=== PATIENT | female | born 1950 | race Caucasian/White ===

== ENCOUNTER → 2020-07-03 | Outpatient (CLI) | payer MEDICARE ==
[2020-07-03 09:14] LABS: BUN/CREATININE RATIO 23; CALCIUM 10.2 MG/DL (8.5-10.1); CARBON DIOXIDE 30 MMOL/L (21-32); CHLORIDE 105 MMOL/L (98-107); CREATININE SERUM 0.83 MG/DL (0.60-1.30); GFR ESTIMATED > 60; GLUCOSE 90 MG/DL (70-105); POTASSIUM 4.4 MMOL/L (3.6-5.0); SODIUM 141 MMOL/L (135-145)
[2020-07-03 09:15] LABS: ALANINE AMINOTRANSFERASE 14 U/L (0-55); ALBUMIN 4.3 GM/DL (3.2-4.5); ALKALINE PHOSPHATASE 47 U/L (40-136); BILIRUBIN,TOTAL 0.5 MG/DL (0.1-1.0)
[2020-07-03 15:27] LABS: CHOLESTEROL 188 MG/DL (< 200); HDL CHOLESTEROL 83 MG/DL (40-60); TRIGLYCERIDES 68 MG/DL (<150); VLDL CHOLESTEROL 14 MG/DL (5-40)
== END ==
LOC: LAB FS 08:12
PROVIDERS: ATTEND Family Medicine
DX: I10 Essential (primary) hypertension (principal)
CPT/HCPCS: 36415; 80053; 80061

== ENCOUNTER → 2020-12-25 | Outpatient (CLI) | payer MEDICARE ==
--- NOTE | 2020-12-25 17:00 | Diagnostic Imaging Report ---
INDICATION: Right knee pain. AP, oblique and lateral views of the right knee are obtained. No previous studies available at this time for comparison. FINDINGS: There is moderate narrowing of the medial knee joint compartment with prominent medial compartment spurring. Patellofemoral marginal spurring is also noted without evidence of an acute fracture or subluxation. There is no significant joint effusion. Tortuous vessels seen in the medial aspect of the thigh and calf are compatible with varicose veins. IMPRESSION: Osteoarthritis of the knee without acute osseous abnormality detected. Dictated by: Dictated on workstation # [id number]
== END ==
LOC: RAD FS 09:47
PROVIDERS: ATTEND Family Medicine
DX: M17.11 Unilateral primary osteoarthritis, right knee (principal)
CPT/HCPCS: 73562

== ENCOUNTER → 2021-12-30 | Outpatient (CLI) | payer MEDICARE ==
[2021-12-30 10:42] LABS: BILIRUBIN,TOTAL 0.9 MG/DL (0.1-1.0); CALCIUM 9.4 MG/DL (8.5-10.1); CREATININE SERUM 0.74 MG/DL (0.60-1.30); POTASSIUM 4.4 MMOL/L (3.6-5.0)
[2021-12-30 10:43] LABS: ALBUMIN 4.3 GM/DL (3.2-4.5); TOTAL PROTEIN 6.5 GM/DL (6.4-8.2)
[2021-12-31 15:52] LABS: FREE T4 (FREE THYROXINE) 0.99 NG/DL (0.70-1.48)
== END ==
LOC: LAB FS 08:51
PROVIDERS: ATTEND Family Medicine
DX: Z00.00 Encounter for general adult medical examination without abnormal findings (principal); I10 Essential (primary) hypertension
CPT/HCPCS: 36415; 80053; 80061; 84439; 84443

== ENCOUNTER 2022-10-31 14:30 | Emergency (ER) | payer MEDICARE ==
[~2022-10-31] VITALS: Ht 152.4 cm; Wt 75.5 kg
[2022-10-31 14:37] VITALS: BP 132/85
[2022-10-31] MEDS ORDERED: NS IV 500 ML 500 ML IV SCH (15:15)
[2022-10-31] MEDS ORDERED: ONDANSETRON 4 MG/2 ML (SDV) Z0FRAN IVP ONE (15:15)
[2022-10-31 15:20] LABS: BASOPHILS % (AUTO) 0 % (0-10); EOSINOPHILS # (AUTO) 0.1 10^3/uL (0.0-0.3); EOSINOPHILS % (AUTO) 1 % (0-10); HEMATOCRIT 38 % (35-52); HEMOGLOBIN 12.2 g/dL (11.5-16.0); LYMPHOCYTES # (AUTO) 0.9 10^3/uL (1.0-4.0); LYMPHOCYTES % (AUTO) 16 % (12-44); MEAN CORPUSCULAR HEMOGLOBIN 29 pg (25-34); MEAN CORPUSCULAR HGB CONC 32 g/dL (32-36); MEAN CORPUSCULAR VOLUME 90 fL (80-99); MONOCYTES # (AUTO) 0.6 10^3/uL (0.0-1.0); MONOCYTES % (AUTO) 11 % (0-12); NEUTROPHILS # (AUTO) 3.9 10^3/uL (1.8-7.8); NEUTROPHILS % (AUTO) 72 % (42-75); PLATELET COUNT 225 10^3/uL (130-400); WHITE BLOOD COUNT 5.5 10^3/uL (4.3-11.0)
[2022-10-31 15:37] LABS: CLARITY,URINE SL CLOUDY; COLOR,URINE YELLOW; GLUCOSE, URINE (UA) NEGATIVE (NEGATIVE); KETONES,URINE 2+ (NEGATIVE); LEUKOCYTE ESTERASE ,URINE NEGATIVE (NEGATIVE); NITRITE,URINE NEGATIVE (NEGATIVE); PROTEIN,URINE NEGATIVE (NEGATIVE)
[2022-10-31] MEDS ORDERED: HOLD METFORMIN - RECEIVED CONTRAST 20 ML VIAL IV SCH (15:45)
[2022-10-31] MEDS ORDERED: NS 100 ML (IVPB) BAG IV ONE (15:45)
[2022-10-31] MEDS ORDERED: IOHEXOL 350 MG/ML 100 ML (OMNIPAQUE 350) VIAL IV ONE (15:45)
[2022-10-31 15:50] LABS: INR 0.9 (0.8-1.4); PROTHROMBIN TIME PATIENT 12.2 SEC (12.2-14.7)
[2022-10-31 15:52] LABS: ALBUMIN 3.6 GM/DL (3.2-4.5); BILIRUBIN,TOTAL 0.3 MG/DL (0.1-1.0); CALCIUM 9.3 MG/DL (8.5-10.1); CREATININE SERUM 0.77 MG/DL (0.60-1.30)
[2022-10-31 16:17] LABS: BILIRUBIN,URINE 2+ (NEGATIVE)
[2022-10-31 16:18] LABS: BACTERIA,URINE TRACE /HPF; WBC,URINE RARE /HPF
--- NOTE | 2022-10-31 16:24 | Diagnostic Imaging Report ---
PROCEDURE: CT abdomen and pelvis with contrast. TECHNIQUE: Multiple contiguous axial images were obtained through the abdomen and pelvis after administration of intravenous contrast. Auto Exposure Controls were utilized during the CT exam to meet ALARA standards for radiation dose reduction. All CT scans use one or more of the following dose optimizing techniques: Automated exposure control, MA and/or KvP adjustment based on patient size and exam type or iterative reconstruction. INDICATION: Abdominal pain and bloating. FINDINGS: Patient is post right mastectomy. There are multiple subcentimeter nodules seen within the basilar aspects of the lungs. Largest nodule on the left is calcified. Calcified granuloma is seen in the left hilum. There are multiple low-density nodules within the liver parenchyma with the largest in the left lobe reaching approximately 2.[address] appearance is most suggestive of hepatic cysts. There is no evidence of gallbladder lesion or biliary ductal dilatation. There is, however, moderate abdominal ascites with hxkfkyey-fd-upzzs amount of pelvic ascites. No pancreatic, adrenal gland, or splenic lesion is identified, although calcified granulomas are present within the spleen. There is high-density material within the colon. This is likely related to ingested substance. There is increased density in the mesentery and omentum, which could be due to edema or inflammation. Small cortical cysts are present within the kidneys without definite hydronephrosis. There is a small umbilical hernia containing fat. Unopacified bladder is unremarkable. There appears to be focal enlargement with mural thickening in the proximal left femoral vein in the inguinal region. IMPRESSION: 1. Subcentimeter nodules in the lung bases are likely related to previous granulomatous exposure. Additional calcified lymph nodes are seen in the left hilum, and calcified granulomas are present in the spleen. Although appearance is less typical, in patient with breast cancer, metastatic disease is not fully excluded. 2. Below the diaphragm, there is a moderate amount of ascites with questionable abnormal increased density in the omentum. Again this could be inflammatory in nature. Metastatic disease to the omentum is not fully excluded, and consideration should be given to diagnostic paracentesis for further assessment. 3. Possible left femoral varix in the inguinal region has a somewhat atypical appearance and could be further assessed with ultrasonography. Dictated by: Dictated on workstation # [id number]
--- NOTE | 2022-10-31 17:12 | ED Abdominal Pain ---
General Chief Complaint: Abdominal/GI Problems Stated Complaint: ABD PAIN Nursing Triage Note: Patient c/o Abd. bloating, gas, and diarrhea x 2 wks. Patient states she has had 2 diarrhea stools in last 24 hrs and states her stool today was "black." Patient denies any Hx. of GI bleed, colitis, or diverticulitis. Patient denies any fevers or urinary symptoms. Patient states her pain is mostly upper Abd. Source of Information: Patient, Family (Daughter), RN Notes Reviewed Exam Limitations: No Limitations History of Present Illness Date Seen by Provider: Oct 31, 2022 Time Seen by Provider: 14:59 Initial Comments 71-year-old female patient complaining of abdominal bloating for 2 weeks and a bdominal pain for 1 day. Patient states she has had bloating in her abdomen and 2-3 episodes of nonbloody diarrhea per day for the last 2 weeks associated with nausea without vomiting. Patient states that she was seen by primary care physician 1 week ago and treated for GERD without improvement of her condition. Patient stated she had pain in epigastric area since this and called her primary care physician and she ordered blood and stool test but because of generalized weakness and shortness of increasing pain she decided to come to ER instead of going only to the lab. Patient stated she had anorexia and had black stool today. Patient states she had unintentional weight loss about 20 pounds in the last 1 year. Patient had lab colonoscopy more than 10 years ago and had stool test for colon cancer 4-5 years ago. Patient denies fever and chills, chest pain, vomiting, urinary symptoms. Patient complaining of shortness of breath because of increasing abdominal size. Patient had history of right mastectomy 27 years ago because of cancer. Patient already has a scheduled appointment with GI specialist on November 03. Allergies and Home Medications Allergies Coded Allergies: No Known Drug Allergies (Unverified , 10/31/22) Patient Home Medication List Home Medication List Reviewed: Yes Ondansetron (Ondansetron Odt) 4 Mg Tab.rapdis, 4 MG PO TID PRN for NAUSEA-1ST LINE Prescribed by: Ana day on 10/31/22 2570 Review of Systems Review of Systems Constitutional: see HPI EENTM: See HPI Respiratory: See HPI Cardiovascular: See HPI Gastrointestinal: See HPI Genitourinary: See HPI Musculoskeletal: see HPI Skin: see HPI Psychiatric/Neurological: See HPI Endocrine: See HPI Hematologic/Lymphatic: See HPI All Other Systems Reviewed Negative Unless Noted: Yes Past Bpirioc-Pxrvyk-Nbywep Hx Patient Social History Tobacco Use?: No Use of E-Cig and/or Vaping dev: No Substance use?: No Alcohol Use?: Yes Alcohol Frequency: Rarely Immunizations Up To Date Influenza Vaccine Up-to-Date: Yes; Up-to-Date Past Medical History Surgery/Hospitalization HX: HTN, Depression, and Anxiety Physical Exam Vital Signs Vital Signs - First Documented 10/31/22 14:37 Temp 37.2 Pulse 99 Resp 16 B/P (MAP) 132/85 (101) Pulse Ox 96 O2 Delivery Room Air Capillary Refill : Height/Weight/BMI Height: '" Weight: lbs. oz. kg; 32.00 BMI Method: General Appearance: WD/WN, no apparent distress HEENT: PERRL/EOMI, normal ENT inspection, TMs normal, pharynx normal Neck: non-tender, full range of motion, supple, normal inspection Respiratory: chest non-tender, lungs clear, normal breath sounds, no respiratory distress, no accessory muscle use Cardiovascular: normal peripheral pulses, regular rate, rhythm, no edema, no gallop, no JVD, no murmur Peripheral Pulses: 2+ Carotid (R), 2+ Carotid (L), 2+ Femoral (R), 2+ Femoral (L), 2+ Dorsalis Pedis (R), 2+ Left Dors-Pedis (L), 2+ Radial Pulses (R), 2+ Radial Pulses (L) Gastrointestinal: normal bowel sounds, non tender, soft, no organomegaly, no pulsatile mass, distended (With air and fluid) Rectal: normal rectal tone, heme negative stool Extremities: normal range of motion, non-tender, normal inspection, no pedal edema, no calf tenderness, normal capillary refill, pelvis stable Pelvic: discharge Neurologic/Psychiatric: coat maker II-XII nml as tested, no motor/sensory deficits, alert, normal mood/affect, oriented x 3 Skin: normal color, warm/dry Lymphatic: no adenopathy Progress/Results/Core Measures Results/Orders Lab Results Laboratory Tests Test 10/31/22 14:44 10/31/22 14:50 10/31/22 15:48 Range/Units Urine Color YELLOW Urine Clarity SL CLOUDY Urine pH 6.0 5-9 [address] 1.025 H 1.016-1.022 Urine Protein NEGATIVE NEGATIVE Urine Glucose (UA) NEGATIVE NEGATIVE Urine Ketones 2+ H NEGATIVE Urine Nitrite NEGATIVE NEGATIVE Urine Bilirubin 2+ H NEGATIVE Urine Urobilinogen 1.0 < = 1.0 MG/DL Urine Leukocyte Esterase NEGATIVE NEGATIVE Urine RBC (Auto) 1+ H NEGATIVE Urine RBC 2-5 H /HPF Urine WBC RARE /HPF Urine Squamous Epithelial Cells 5-10 /HPF Urine Crystals NONE /LPF Urine Bacteria TRACE /HPF Urine Casts NONE /LPF Urine Mucus MODERATE H /LPF Urine Culture Indicated NO White Blood Count 5.5 4.3-11.0 10^3/uL Red Blood Count 4.19 3.80-5.11 10^6/uL Hemoglobin 12.2 11.5-16.0 g/dL Hematocrit 38 35-52 % Mean Corpuscular Volume 90 80-99 fL Mean Corpuscular Hemoglobin 29 25-34 pg Mean Corpuscular Hemoglobin Concent 32 32-36 g/dL Red Cell Distribution Width 13.0 10.0-14.5 % Platelet Count 225 130-400 10^3/uL Mean Platelet Volume 11.0 9.0-12.2 fL Immature Granulocyte % (Auto) 0 % Neutrophils (%) (Auto) 72 42-75 % Lymphocytes (%) (Auto) 16 12-44 % Monocytes (%) (Auto) 11 0-12 % Eosinophils (%) (Auto) 1 0-10 % Basophils (%) (Auto) 0 0-10 % Neutrophils # (Auto) 3.9 1.8-7.8 10^3/uL Lymphocytes # (Auto) 0.9 L 1.0-4.0 10^3/uL Monocytes # (Auto) 0.6 0.0-1.0 10^3/uL Eosinophils # (Auto) 0.1 0.0-0.3 10^3/uL Basophils # (Auto) 0.0 0.0-0.1 10^3/uL Immature Granulocyte # (Auto) 0.0 0.0-0.1 10^3/uL Prothrombin Time 12.2 12.2-14.7 SEC INR Comment 0.9 0.8-1.4 Activated Partial Thromboplast Time 29 24-35 SEC Sodium Level 142 135-145 MMOL/L Potassium Level 4.0 3.6-5.0 MMOL/L Chloride Level 104 98-107 MMOL/L Carbon Dioxide Level 26 21-32 MMOL/L Anion Gap 12 5-14 MMOL/L Blood Urea Nitrogen 14 7-18 MG/DL Creatinine 0.77 0.60-1.30 MG/DL Estimat Glomerular Filtration Rate 82 BUN/Creatinine Ratio 18 Glucose Level 86 70-105 MG/DL Calcium Level 9.3 8.5-10.1 MG/DL Corrected Calcium 9.6 8.5-10.1 MG/DL Total Bilirubin 0.3 0.1-1.0 MG/DL Aspartate Amino Transf (AST/SGOT) 22 5-34 U/L Alanine Aminotransferase (ALT/SGPT) 12 0-55 U/L Alkaline Phosphatase 94 40-136 U/L Total Protein 6.0 L 6.4-8.2 GM/DL Albumin 3.6 3.2-4.5 GM/DL Lipase 17 8-78 U/L Stool Occult Blood Immunoassay NEGATIVE NEGATIVE My Orders Orders - ANA DAY MD Comprehensive Metabolic Panel (10/31/22 15:08) Lipase (10/31/22 15:08) Ua Culture If Indicated (10/31/22 15:08) Ed Iv/Invasive Line Start (10/31/22 15:08) Cbc With Automated Diff (10/31/22 15:08) Ct Abdomen/Pelvis W (10/31/22 15:08) Protime With Inr (10/31/22 15:08) Partial Thromboplastin Time (10/31/22 15:08) Ondansetron Injection (Zofran Injectio (10/31/22 15:15) Ns Iv 500 Ml (Sodium Chloride 0.9%) (10/31/22 15:15) Occult Blood Stool (10/31/22 15:08) Iohexol Injection (Omnipaque 350 Mg/Ml 1 (10/31/22 15:45) Received Contrast (Hold Metformin- Contr (10/31/22 15:45) Ns (Ivpb) (Sodium Chloride 0.9% Ivpb Bag (10/31/22 15:45) Medications Given in ED Current Medications Medications Dose Ordered Sig/Santos Route Start Time Stop Time Status Last Admin Dose Admin Ondansetron HCl 4 mg ONCE ONCE IVP 10/31/22 15:15 10/31/22 15:16 DC 10/31/22 15:17 4 MG Vital Signs/I&O 10/31/22 14:37 Temp 37.2 Pulse 99 Resp 16 B/P (MAP) 132/85 (101) Pulse Ox 96 O2 Delivery Room Air Blood Pressure Mean: 101 Progress Progress Note : Progress Note 71-year-old male patient with history of right mastectomy 27 years ago with complaining of abdominal bloating and nausea for 2 weeks and abdominal pain and dark-colored stool today. Patient had unremarkable physical exam and negative guaiac test. CBC, CMP, lipase, UA and PT/INR/PTT was ordered by me and did not show acute finding except for hemoglobin of 12.2. Guaiac test was negative. CT abdomen pelvis showed moderate ascites with consideration of metastatic disease and paracentesis was recommended. CT also showed pulmonary nodule mostly related to granulomatosis disease. Dr. Cote office was contacted and I talked to Brianne ROTHMAN at 164 and she agreed to make arrangement for outpatient paracentesis and required test. I informed the patient and her daughter about the test result and plan to follow-up with her GI appointment on November 03 and outpatient paracentesis that we will be ordering by primary care physician office but they requested inpatient admission for faster evaluation. Dr. Medina on-call hospitalist was consulted at 1702 and recommended outpatient treatment. Patient and her daughter was informed about plan of care and needs to follow-up as outpatient and return to the hospital as needed. Prescription for Zofran was given. Diagnostic Imaging Diagonstic Imaging: CT Plain Films/CT/US/NM/MRI: abdomen, pelvis Comments CT abdomen pelvis with IV contrast interpreted by radiologist and reviewed by me and showed: [facility] [place] NAME: SAAVEDRAARIELLE REC#: [id number] PT STATUS: REG ER : 1950 PHYSICIAN: ANA DAY MD ADMIT DATE: 10/31/22/ER FS Draft Date of Exam:10/31/22 CT ABDOMEN/PELVIS W PROCEDURE: CT abdomen and pelvis with contrast. TECHNIQUE: Multiple contiguous axial images were obtained through the abdomen and pelvis after administration of intravenous contrast. Auto Exposure Controls were utilized during the CT exam to meet ALARA standards for radiation dose reduction. All CT scans use one or more of the following dose optimizing techniques: Automated exposure control, MA and/or KvP adjustment based on patient size and exam type or iterative reconstruction. INDICATION: Abdominal pain and bloating. FINDINGS: Patient is post right mastectomy. There are multiple subcentimeter nodules seen within the basilar aspects of the lungs. Largest nodule on the left is calcified. Calcified granuloma is seen in the left hilum. There are multiple low-density nodules within the liver parenchyma with the largest in the left lobe reaching approximately 2.[address] appearance is most suggestive of hepatic cysts. There is no evidence of gallbladder lesion or biliary ductal dilatation. There is, however, moderate abdominal ascites with oxvldfsm-fh-ssikb amount of pelvic ascites. No pancreatic, adrenal gland, or splenic lesion is identified, although calcified granulomas are present within the spleen. There is high-density material within the colon. This is likely related to ingested substance. There is increased density in the mesentery and omentum, which could be due to edema or inflammation. Small cortical cysts are present within the kidneys without definite hydronephrosis. There is a small umbilical hernia containing fat. Unopacified bladder is unremarkable. There appears to be focal enlargement with mural thickening in the proximal left femoral vein in the inguinal region. IMPRESSION: 1. Subcentimeter nodules in the lung bases are likely related to previous granulomatous exposure. Additional calcified lymph nodes are seen in the left hilum, and calcified granulomas are present in the spleen. Although appearance is less typical, in patient with breast cancer, metastatic disease is not fully excluded. 2. Below the diaphragm, there is a moderate amount of ascites with questionable abnormal increased density in the omentum. Again this could be inflammatory in nature. Metastatic disease to the omentum is not fully excluded, and consideration should be given to diagnostic paracentesis for further assessment. 3. Possible left femoral varix in the inguinal region has a somewhat atypical appearance and could be further assessed with ultrasonography. Dictated on workstation # [id number] Dict: 10/31/22 1614 Trans: 10/31/22 1624 [id number] Interpreted by: JONO ALMONTE MD Electronically signed by: Departure Impression Primary Impression: Ascites Qualified Codes: R18.8 - Other ascites Additional Impressions: Diarrhea Abnormal CT of the abdomen Nausea alone Disposition: HOME, SELF-CARE Condition: Improved Departure-Patient Inst. Decision time for Depature: 17:14 Referrals: MARZENA COTE MD (PCP/Family) Primary Care Physician Patient Instructions: Fluid in the Belly (Ascites) (DC), Diarrhea, Adult ED Add. Discharge Instructions: Follow-up with your appointment with GI specialist on November 03 Follow-up with your primary care physician office tomorrow for outpatient test evaluation test for fluid inside of your abdomen Return to ER as needed All discharge instructions reviewed with patient and/or family. Voiced understanding. Scripts Ondansetron (Ondansetron Odt) 4 Mg Tab.rapdis 4 MG PO TID PRN for NAUSEA-1ST LINE, #14 TAB Prov: ANA DAY MD 10/31/22 ANA DAY MD Oct 31, 2022 17:12
[2022-10-31] MEDS ORDERED: ONDA4TAB11 PO (17:16)
== END 2022-10-31 17:20 | disposition home or self-care (01) ==
LOC: EDUNIT# 14:30 → ER FS 14:31
DX: R18.8 Other ascites (principal); R19.7 Diarrhea, unspecified; R11.0 Nausea; R93.5 Abnormal findings on diagnostic imaging of other abdominal regions, including retroperitoneum; R14.0 Abdominal distension (gaseous); R91.8 Other nonspecific abnormal finding of lung field; R10.13 Epigastric pain; Z87.19 Personal history of other diseases of the digestive system
CPT/HCPCS: 36415; 74177; 80053; 81000; 82274; 83690; 85025; 85610; 85730